=== PATIENT | male | born 1985 | race Caucasian/White ===

== ENCOUNTER 2016-03-23 12:04 | Emergency (ER) | payer BC ==
[~2016-03-23] VITALS: Ht 193 cm; Wt 108.9 kg
[2016-03-23 12:34] LABS: BASOPHILS 0.4 % (0.0-2.0); EOSINOPHILS 3.1 % (0.0-3.0); HEMATOCRIT 47.9 % (42.0-52.0); HEMOGLOBIN 16.4 gm/dL (14.0-18.0); LYMPHOCYTES 26.7 % (24.0-44.0); MCH 29.9 pg (26.0-34.0); MCHC 34.3 % (28.0-37.0); MCV 87.1 fL (80.0-100.0); MONOCYTES 8.2 % (1.0-8.0); PLATELET COUNT 242 thou/uL (150-400); POLYS 61.6 % (36.0-66.0); RDW 13.3 % (10.5-14.5); WBC 11.3 thou/uL (4.0-11.0)
[2016-03-23 12:38] LABS: CALCIUM 8.9 mg/dL (8.5-10.1); POTASSIUM 4.1 mmol/L (3.5-5.1)
[2016-03-23 12:39] LABS: MANUAL DIFF NO
[2016-03-23 12:45] LABS: DIRECT BILIRUBIN 0.1 mg/dL (<0.1-0.3); TOTAL BILIRUBIN 0.4 mg/dL (<0.1-1.0); TOTAL PROTEIN 7.5 g/dL (6.4-8.2)
[2016-03-23] MEDS ORDERED: AUGMENTIN 875875 MG PO (13:38)
[2016-03-23] MEDS ORDERED: IBUPROFEN 800800 M1 PO (13:38)
[2016-03-23 13:53] VITALS: BP 144/96
== END 2016-03-23 13:56 | disposition home or self-care (01) ==
LOC: ER 12:04
PROVIDERS: Nurse Practitioner
DX: K42.9 Umbilical hernia without obstruction or gangrene (principal); F10.99 Alcohol use, unspecified with unspecified alcohol-induced disorder